=== PATIENT | male | born 1985 | race American Indian/Alaskan Native ===

== ENCOUNTER 2017-05-08 15:34 | Inpatient (IN) | payer OTHER ==
[2017-05-08] MEDS ORDERED: NACL 0.9% 1000 ML 1,000 ML ONE (15:58)
[2017-05-08] MEDS ORDERED: SUBLIMAZE ONE (15:58)
[2017-05-08] MEDS ORDERED: NACL 0.9% 1000 ML 1,000 ML IV ONE ×2 (16:00→17:06)
[2017-05-08] MEDS ORDERED: SUBLIMAZE IV ONE ×2 (16:00→16:34)
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
[2017-05-08 16:57] LABS: Basophils % (Auto) 0.6 % (0.0-1.8); Eosinophils % (Auto) 0.3 % (0.0-4.3); Hematocrit 45.2 % (35.5-45.6); Hemoglobin 14.8 gm/dl (11.8-15.2); Mean Corpuscular HGB Conc 33 % (32-34); Mean Corpuscular Hemoglobin 30 pg (28-32); Mean Corpuscular Volume 90 fl (84-94); Platelet Count 253 K/mm3 (140-440); Red Cell Distribution Width 13.4 % (13.2-15.2); White Blood Count 16.8 K/mm3 (4.5-11.0)
[2017-05-08] MEDS ORDERED: BENADRYL IV ONE (17:05)
[2017-05-08] MEDS ORDERED: DILAUDID IV ONE (17:05)
[2017-05-08] MEDS ORDERED: DILAUDID ONE ×2 (17:10→21:05)
[2017-05-08 17:17] LABS: Creatine Kinase MB 2.7 ng/mL (0.0-4.0)
[2017-05-08 17:19] LABS: Alanine Aminotransferase 17 units/L (7-56); Albumin 4.3 g/dL (3.9-5); Albumin/Globulin Ratio 1.5 %; Alkaline Phosphatase 75 units/L (35-129); Anion Gap 17 mmol/L; BUN/Creatinine Ratio 12.22; Blood Urea Nitrogen 11 mg/dL (9-20); Calcium 9.3 mg/dL (8.4-10.2); Carbon Dioxide 26 mmol/L (22-30); Chloride 107.3 mmol/L (98-107); Creatine Kinase 330 units/L (55-170); Glucose 91 mg/dL (75-100); INR 1.06 (0.87-1.13); Potassium 4.6 mmol/L (3.6-5.0); Sodium 146 mmol/L (137-145); Total Protein 7.1 g/dL (6.3-8.2)
[2017-05-08 17:20] LABS: Partial Thromboplastin Time 24.7 Sec. (24.2-36.6)
[2017-05-08 17:21] LABS: Bilirubin,Direct < 0.2 mg/dL (0-0.2); Bilirubin,Indirect 0.4 mg/dL
--- NOTE | 2017-05-08 17:25 | XRay Report ---
FINAL REPORT EXAM: XR CHEST 1V AP HISTORY: hypertension TECHNIQUE: upright single view chest PRIORS: None. FINDINGS: Cardiac and mediastinal contours are unremarkable. No focal pulmonary infiltrate is identified. No pleural fluid collection seen. Pulmonary vasculature is unremarkable. IMPRESSION: Negative single-view chest
[2017-05-08] MEDS ORDERED: ZOFRAN IV NR (18:00)
--- NOTE | 2017-05-08 18:02 | History and Physical Report ---
History of Present Illness Date of examination: 05/08/17 Date of admission: 05/08/17 History of present illness: History of Present Illness Patient states he is working on the rotor of car motor. The car was not properly supported and came down onto his left white. He states he rested in that position for 30 seconds before he was able to release his leg. He was transported to ED at [facility]. Further evaluation and given fentanyl and route by paramedics. He was given additional analgesia on arrival in the emergency department. On my evaluation the patient complained of left lower leg pain only. He denied any other injury. He denies any distal weakness numbness or paresthesias. He stated that he had no history of hypertension or diabetes or any chronic medical problems. He denied taking any routine medication. Past Medical History Previous Medical History?: No - Surgical History Past Surgical History?: No - Social History Smoking Status: Current Every Day Smoker Substance Use Type: None - Medications Home Medications: Home Medications Medication Instructions Recorded Confirmed Last Taken Type No Known Home Medications [No 05/08/17 05/08/17 Unknown History Reported Home Medications] Review of Systems Stated complaint: FRACTURE TO LOWER LEFT LEG Other details as noted in HPI Constitutional: denies: chills, fever Eyes: denies: eye pain, eye discharge, vision change ENT: denies: ear pain, throat pain Respiratory: denies: cough, shortness of breath, wheezing Cardiovascular: denies: chest pain, palpitations Endocrine: no symptoms reported Gastrointestinal: denies: abdominal pain, nausea, diarrhea Genitourinary: denies: urgency, dysuria Musculoskeletal: as per HPI. denies: back pain, joint swelling, arthralgia Skin: denies: rash, lesions Neurological: denies: headache, weakness, paresthesias Psychiatric: denies: anxiety, depression Hematological/Lymphatic: denies: easy bleeding, easy bruising Medications and Allergies Allergies Allergy/AdvReac Type Severity Reaction Status Date / Time No Known Allergies Allergy Verified 05/08/17 15:49 Home Medications Medication Instructions Recorded Confirmed Last Taken Type No Known Home Medications [No 05/08/17 05/08/17 Unknown History Reported Home Medications] Active Meds: Active Medications Sodium Chloride (Nacl 0.9% 1000 Ml) 1,000 mls @ 125 mls/hr IV ONCE ONE Stop: 05/09/17 01:05 Last Admin: 05/08/17 17:39 Dose: 125 mls/hr Ondansetron HCl (Zofran) 4 mg IV PREOP NR Stop: 05/09/17 17:59 Exam - Constitutional Vitals: Temp Pulse Resp BP Pulse Ox 98.3 F 77 16 130/87 99 05/08/17 15:44 05/08/17 15:44 05/08/17 16:03 05/08/17 15:44 05/08/17 16:03 Results - Labs CBC & Chem 7: 05/09/17 05:39 05/09/17 05:39 Labs: Laboratory Last Values WBC 16.8 K/mm3 (4.5-11.0) H 05/08/17 16:43 RBC 5.00 M/mm3 (3.65-5.03) 05/08/17 16:43 Hgb 14.8 gm/dl (11.8-15.2) 05/08/17 16:43 Hct 45.2 % (35.5-45.6) 05/08/17 16:43 MCV 90 fl (84-94) 05/08/17 16:43 MCH 30 pg (28-32) 05/08/17 16:43 MCHC 33 % (32-34) 05/08/17 16:43 RDW 13.4 % (13.2-15.2) 05/08/17 16:43 Plt Count 253 K/mm3 (140-440) 05/08/17 16:43 Lymph % (Auto) 6.1 % (13.4-35.0) L 05/08/17 16:43 [place] % (Auto) 4.6 % (0.0-7.3) 05/08/17 16:43 Eos % (Auto) 0.3 % (0.0-4.3) 05/08/17 16:43 Baso % (Auto) 0.6 % (0.0-1.8) 05/08/17 16:43 Lymph # 1.0 K/mm3 (1.2-5.4) L 05/08/17 16:43 [place]y # 0.8 K/mm3 (0.0-0.8) 05/08/17 16:43 Eos # 0.0 K/mm3 (0.0-0.4) 05/08/17 16:43 Baso # 0.1 K/mm3 (0.0-0.1) 05/08/17 16:43 Seg Neutrophils % 88.4 % (40.0-70.0) H 05/08/17 16:43 Seg Neutrophils # 14.9 K/mm3 (1.8-7.7) H 05/08/17 16:43 PT 13.7 Sec. (12.2-14.9) 05/08/17 16:43 INR 1.06 (0.87-1.13) 05/08/17 16:43 APTT 24.7 Sec. (24.2-36.6) 05/08/17 16:43 Sodium 146 mmol/L (137-145) H 05/08/17 16:43 Potassium 4.6 mmol/L (3.6-5.0) 05/08/17 16:43 Chloride 107.3 mmol/L (98-107) H 05/08/17 16:43 Carbon Dioxide 26 mmol/L (22-30) 05/08/17 16:43 Anion Gap 17 mmol/L 05/08/17 16:43 BUN 11 mg/dL (9-20) 05/08/17 16:43 Creatinine 0.9 mg/dL (0.8-1.5) 05/08/17 16:43 Estimated GFR > 60 ml/min 05/08/17 16:43 BUN/Creatinine Ratio 12.22 % 05/08/17 16:43 Glucose 91 mg/dL (75-100) 05/08/17 16:43 Calcium 9.3 mg/dL (8.4-10.2) 05/08/17 16:43 Magnesium 1.80 mg/dL (1.7-2.3) 05/08/17 16:43 Total Bilirubin 0.60 mg/dL (0.1-1.2) 05/08/17 16:43 Direct Bilirubin < 0.2 mg/dL (0-0.2) 05/08/17 16:43 Indirect Bilirubin 0.4 mg/dL 05/08/17 16:43 AST 19 units/L (5-40) 05/08/17 16:43 ALT 17 units/L (7-56) 05/08/17 16:43 Alkaline Phosphatase 75 units/L (35-129) 05/08/17 16:43 Total Creatine Kinase 330 units/L (55-170) H 05/08/17 16:43 CK-MB (CK-2) 2.7 ng/mL (0.0-4.0) 05/08/17 16:43 CK-MB (CK-2) Rel Index 0.8 (0-4) 05/08/17 16:43 Total Protein 7.1 g/dL (6.3-8.2) 05/08/17 16:43 Albumin 4.3 g/dL (3.9-5) 05/08/17 16:43 Albumin/Globulin Ratio 1.5 % 05/08/17 16:43 Blood Type O POSITIVE 05/08/17 16:48 Antibody Screen Negative 05/08/17 16:48
[2017-05-08] MEDS ORDERED: TYLENOL PO PRN (18:03)
[2017-05-08] MEDS ORDERED: ZOFRAN IV PRN (18:03)
[2017-05-08] MEDS ORDERED: MILK OF MAGNESIA PO PRN (18:03)
[2017-05-08] MEDS ORDERED: DILAUDID IV PRN (18:03)
[2017-05-08] MEDS ORDERED: DULCOLAX PR PRN (18:03)
[2017-05-08 18:57] LABS: Bilirubin,Urine NEG (Negative); Blood,Urine MOD (Negative); Ketones,Urine NEG (Negative); Leukocyte Esterase,Urine SM (Negative); Mucus,Urine FEW /HPF; Nitrite,Urine NEG (Negative); Protein,Urine <15 mg/dL mg/dL (Negative); Urobilinogen,Urine < 2.0 mg/dL (<2.0)
--- NOTE | 2017-05-08 18:57 | Emergency Department Report ---
ED Extremity Problem HPI - General Chief complaint: Extremity Injury, Lower Stated complaint: FRACTURE TO LOWER LEFT LEG Time Seen by Provider: 05/08/17 16:12 Source: EMS Mode of arrival: Stretcher Limitations: No Limitations - History of Present Illness Initial comments: Patient states he is working on the rotor of car motor. He missed the car was not properly supported. The car came down onto his left white. He states he rested in that position for 30 seconds before he was able to release his leg. He was transported to this. Further evaluation and given fentanyl and route by paramedics. He was given additional analgesia on arrival in the emergency department. On my evaluation the patient complained of left lower leg pain only. He denied any other injury. He denies any distal weakness numbness or paresthesias. He stated that he had no history of hypertension or diabetes or any chronic medical problems. He denied taking any routine medication. MD Complaint: extremity pain -: Sudden Location: left, lower extremity History of Same: No Radiation: none Severity scale (0 -10): 10 Quality: aching Consistency: constant Improves with: nothing Worsens with: other (movement) Associated Symptoms: denies other symptoms - Related Data Home Medications Medication Instructions Recorded Confirmed Last Taken No Known Home Medications [No 05/08/17 05/08/17 Unknown Reported Home Medications] Allergies Allergy/AdvReac Type Severity Reaction Status Date / Time No Known Allergies Allergy Verified 05/08/17 15:49 ED Review of Systems ROS: Stated complaint: FRACTURE TO LOWER LEFT LEG Other details as noted in HPI Constitutional: denies: chills, fever Eyes: denies: eye pain, eye discharge, vision change ENT: denies: ear pain, throat pain Respiratory: denies: cough, shortness of breath, wheezing Cardiovascular: denies: chest pain, palpitations Endocrine: no symptoms reported Gastrointestinal: denies: abdominal pain, nausea, diarrhea Genitourinary: denies: urgency, dysuria Musculoskeletal: as per HPI. denies: back pain, joint swelling, arthralgia Skin: denies: rash, lesions Neurological: denies: headache, weakness, paresthesias Psychiatric: denies: anxiety, depression Hematological/Lymphatic: denies: easy bleeding, easy bruising ED Past Medical Hx - Past Medical History Previous Medical History?: No - Surgical History Past Surgical History?: No - Social History Smoking Status: Current Every Day Smoker Substance Use Type: None - Medications Home Medications: Home Medications Medication Instructions Recorded Confirmed Last Taken Type No Known Home Medications [No 05/08/17 05/08/17 Unknown History Reported Home Medications] ED Physical Exam - General Limitations: No Limitations General appearance: alert, in no apparent distress - Head Head exam: Present: atraumatic, normocephalic - Eye Eye exam: Present: normal appearance, PERRL, EOMI. Absent: scleral icterus - ENT ENT exam: Present: mucous membranes moist - Neck Neck exam: Present: normal inspection - Respiratory Respiratory exam: Present: normal lung sounds bilaterally. Absent: respiratory distress - Cardiovascular Cardiovascular Exam: Present: regular rate, normal rhythm. Absent: systolic murmur, diastolic murmur, rubs, gallop - GI/Abdominal GI/Abdominal exam: Present: soft, normal bowel sounds. Absent: distended, tenderness, guarding, rebound, rigid - Rectal Rectal exam: Present: deferred - Extremities Exam Extremities exam: Present: normal capillary refill, other (soft tissue swelling and mild overlying ecchymosis of the middle third of the pretibial and calf area. There is swelling. However there is no sign of increased compartment pressure or tenseness of the calf or lower extremity. The dorsalis pedis and posterior tibial pulses are both 2+. There is no distal deformity or decreased temperature sensation.) - Back Exam Back exam: Present: normal inspection - Neurological Exam Neurological exam: Present: alert, oriented X3, CN II-XII intact. Absent: motor sensory deficit - Psychiatric Psychiatric exam: Present: normal affect, normal mood - Skin Skin exam: Present: warm, dry, intact, normal color. Absent: rash ED Course Vital Signs 05/08/17 05/08/17 15:44 16:03 Temperature 98.3 F Pulse Rate 77 Respiratory 16 16 Rate Blood Pressure 130/87 O2 Sat by Pulse 99 99 Oximetry - Reevaluation(s) Reevaluation #1: The case was discussed with Dr. Delgado the orthopedist. He received the images via text. He stated that the patient may be a candidate for IM salvatore. I personally think that is likely. He is admitted to the hospitalist service. The leg will require close observation. He was placed in a long-leg splint and the leg elevated. Ice packs were applied by nursing. Further care per Dr. ShyannElvira. 05/08/17 18:55 ED Medical Decision Making - Lab Data Result diagrams: 05/08/17 16:43 05/08/17 16:43 Laboratory Results - last 24 hr 05/08/17 05/08/17 05/08/17 16:43 16:43 16:43 WBC 16.8 H RBC 5.00 Hgb 14.8 Hct 45.2 MCV 90 MCH 30 MCHC 33 RDW 13.4 Plt Count 253 Lymph % (Auto) 6.1 L [place] % (Auto) 4.6 Eos % (Auto) 0.3 Baso % (Auto) 0.6 Lymph # 1.0 L [place] # 0.8 Eos # 0.0 Baso # 0.1 Seg Neutrophils % 88.4 H Seg Neutrophils # 14.9 H PT 13.7 INR 1.06 APTT 24.7 Sodium 146 H Potassium 4.6 Chloride 107.3 H Carbon Dioxide 26 Anion Gap 17 BUN 11 Creatinine 0.9 Estimated GFR > 60 BUN/Creatinine Ratio 12.22 Glucose 91 Calcium 9.3 Magnesium 1.80 Total Bilirubin 0.60 Direct Bilirubin < 0.2 Indirect Bilirubin 0.4 AST 19 ALT 17 Alkaline Phosphatase 75 Total Creatine Kinase 330 H CK-MB (CK-2) 2.7 CK-MB (CK-2) Rel Index 0.8 Total Protein 7.1 Albumin 4.3 Albumin/Globulin Ratio 1.5 Urine Bilirubin Urine RBC (Auto) U Epithel Cells (Auto) Blood Type Antibody Screen 05/08/17 05/08/17 16:48 18:20 WBC RBC Hgb Hct MCV MCH MCHC RDW Plt Count Lymph % (Auto) [place] % (Auto) Eos % (Auto) Baso % (Auto) Lymph # [place] # Eos # Baso # Seg Neutrophils % Seg Neutrophils # PT INR APTT Sodium Potassium Chloride Carbon Dioxide Anion Gap BUN Creatinine Estimated GFR BUN/Creatinine Ratio Glucose Calcium Magnesium Total Bilirubin Direct Bilirubin Indirect Bilirubin AST ALT Alkaline Phosphatase Total Creatine Kinase CK-MB (CK-2) CK-MB (CK-2) Rel Index Total Protein Albumin Albumin/Globulin Ratio Urine Bilirubin Neg Urine RBC (Auto) 3.0 U Epithel Cells (Auto) 1.0 Blood Type O POSITIVE Antibody Screen Negative - Radiology Data Radiology results: report reviewed Critical care attestation.: If time is entered above; I have spent that time in minutes in the direct care of this critically ill patient, excluding procedure time. ED Disposition Clinical Impression: Fracture of tibia with fibula, left, closed Qualifiers: Encounter type: initial encounter Qualified Code(s): S82.202A - Unspecified fracture of shaft of left tibia, initial encounter for closed fracture; S82.402A - Unspecified fracture of shaft of left fibula, initial encounter for closed fracture Disposition: 09 OP ADMIT IP TO THIS HOSP Is pt being admited?: Yes Does the pt Need Aspirin: No Condition: Stable Time of Disposition: 19:10
[2017-05-08] MEDS: DILAUDID IV SCH (21:21)
[2017-05-08] MEDS: HEPARIN SUB-Q SCH (23:14)
--- NOTE | 2017-05-09 00:49 | Admit Criteria Form ---
Admission Criteria Documentation: MUSCULOSKELETAL DISEASE GRG Clinical Indications for Admission to Inpatient Care (Place 'X' for any and all applicable criteria): Hospital admission is needed for appropriate care of the patient because of 1 or more of the following: [X]I. Fracture, dislocation, or other musculoskeletal injury requiring inpatient care(medical) as indicated by 1 or more of the following(4)(5)(6)(7) [ ]a) Vertebral fracture requiring observation for instability or neurologic compromise (8) [ ]b) Compartment syndrome (proven or cannot be ruled out during observation level of care) (9) [ ]c) Limb-threatening injury [ ]d) Major injury requiring inpatient stabilization such as traction initiation or external fixation before internal fixation or closure of complex or open fracture [ ]e) Major injury requiring inpatient treatment after emergency or observation level care (as appropriate) [X]f) Severe pain requiring acute inpatient management [ ]g) Injury with suspicion of abuse or neglect (eg., child, dependent elderly) [ ]II. Newly diagnosed or suspected bone, joint, or orthopedic device infection (e.g., osteomyelitis, septic arthritis) needing 1 or more of the following(1)(2)(3) [ ]a) IV antibiotics that cannot be initiated in other than inpatient setting (e.g., patient too unstable or home infusion not available) [ ]b) Device removal or replacement [ ]c) Bone or soft tissue debridement [ ]d) Joint drainage (drain placement or repetitive aspirations) [ ]III. Severe rheumatologic disease (e.g., systemic lupus erythematosus, rheumatoid arthritis) with complications or comorbidities (Also use Optimal Recovery Care Criteria or General Recovery Criteria as appropriate on the basis of predominant condition), including 1 or more of the following( 10)(11)(12)(13) [ ]a) Severe infection (e.g., TOUCH [employer]ER infection, sepsis) (14) [ ]b) Respiratory complications, including 1 or more of the following : [ ]i) Pleural effusion with respiratory compromise [ ]ii) Pulmonary hypertension with congestive failure [ ]iii) Respiratory failure [ ]iv) Pulmonary hemorrhage (15) [ ]c) Hematologic disease, including 1 or more of the following: [ ]i) Coagulopathy with bleeding [ ]ii) Thrombosis with hypercoagulable state [ ]iii) Thrombotic thrombocytopenic purpura [ ]d) Cerebritis with seizures, psychosis, or other severe abnormalities [ ]e) Vertebral destruction with monitoring needed for cervical myelopathy& possible respiratory compromise [ ]f) Exacerbation that requires inpatient treatment (e.g., intravenous immunosuppression) (16) [ ]g) Acute renal failure [ ]h) Cerebritis with seizures, psychosis, Altered mental status, or other neurologic abnormalities [ ]i) Pericardial effusion with tamponade [ ]j) Vertebral destruction, with monitoring needed for cervical myelopathy and possible respiratory compromise [ ]IV. Severe vasculitis with complications or comorbidities (Also use Optimal Recovery Care Criteria General Recovery Criteria as appropriate on the basis of predominant condition), including 1 or more of the following(11)(12)(17)(18)(19)(20) [ ]a) Exacerbation that requires inpatient treatment (e.g., intravenous immunosuppression) (19)(21) [ ]b) Pulmonary hemorrhage (15) [ ]c) TOUCH [employer]ER vasculitis with seizures, psychosis, Altered mental status that is severe or persistent, or other severe abnormalities (22) [ ]d) Cerebral infarction [ ]e) Gastrointestinal ischemia [ ]f) Gangrene or threatened amputation [ ]g) Renal failure (16) [ ]h) Other significant complications of vasculitis ( eg., tissue or organ ischemia, organ dysfunction ) [ ]V. Severe myopathy as indicated by 1 or more of the following (28)(29) [ ]a) New onset of airway compromise or inability to swallow [ ]b) Respiratory deterioration with observation needed for impending respiratory failure [ ]c) Exacerbation that requires inpatient treatment (e.g., intravenous immunosuppression) [ ]. Severe crystal gout (arthropathy) indicated by 1 or more of the following (23)(24) [ ]a) Severe pain requiring acute inpatient management [ ]b) Exacerbation that requires inpatient treatment (e.g., intravenous treatment) [ ]VII.Rhabdomyolysis and 1 or more of the following (25)(26)(27) [ ]a) Acute renal failure [ ]b) Need for intravenous hydration after emergency or observation level care (as appropriate) [ ]c) Inability to maintain oral hydration [ ]d) Change in mental status [ ]e) Electrolyte abnormality that remains after emergency or observation level care (as appropriate) [ ]VIII Post amputation complication, as indicated by ANY ONE of the following [ ]a) Infection [ ]b) Dehiscence [ ]c) Myodesis failure [ ]IX. Severe pain requiring acute inpatient management due to musculoskeletal condition [ ]X. Musculoskeletal Disease and ALL of the following: [ ]a) Symptom or finding for which emergency and observation care have failed or are not considered appropriate (Use General Criteria: Observation Care as appropriate) [ ]b) Presence of ANY ONE of the following [ ]i) A General Admission Criteria [ ]ii) A Pediatric General Admission Criteria The original [facility] [employer] content created by [facility] [employer] has been revised. The portions of the content which have been revised are identified through the use of italic text or in bold, and [facility] has neither reviewed nor approved the modified material. All other unmodified content is copyright [facility] [employer]. Please see references footnoted in the original [facility] edition 2016 Admission Criteria Met: Yes
[2017-05-09] MEDS: DILAUDID IV SCH ×8 (01:24→22:32)
[2017-05-09] MEDS: D5NS 1,000 ML IV SCH ×2 (03:27→12:29)
[2017-05-09 06:00] LABS: Basophils % (Auto) 0.4 % (0.0-1.8); Eosinophils % (Auto) 1.1 % (0.0-4.3); Hematocrit 40.5 % (35.5-45.6); Hemoglobin 13.7 gm/dl (11.8-15.2); Mean Corpuscular HGB Conc 34 % (32-34); Mean Corpuscular Hemoglobin 30 pg (28-32); Mean Corpuscular Volume 90 fl (84-94); Platelet Count 210 K/mm3 (140-440); Red Blood Count 4.52 M/mm3 (3.65-5.03); Red Cell Distribution Width 13.3 % (13.2-15.2); White Blood Count 10.6 K/mm3 (4.5-11.0)
[2017-05-09 06:21] LABS: Alanine Aminotransferase 15 units/L (7-56); Albumin 3.5 g/dL (3.9-5); Albumin/Globulin Ratio 1.1 %; Alkaline Phosphatase 65 units/L (35-129); Anion Gap 19 mmol/L; BUN/Creatinine Ratio 11.25; Blood Urea Nitrogen 9 mg/dL (9-20); Calcium 8.4 mg/dL (8.4-10.2); Carbon Dioxide 22 mmol/L (22-30); Chloride 105.5 mmol/L (98-107); Glucose 99 mg/dL (75-100); Potassium 4.4 mmol/L (3.6-5.0); Sodium 142 mmol/L (137-145); Total Protein 6.7 g/dL (6.3-8.2)
[2017-05-09] MEDS: HEPARIN SUB-Q SCH ×2 (09:12→22:33)
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
[2017-05-09] MEDS: PERCOCET 5/325 PO PRN (16:36)
--- NOTE | 2017-05-09 17:32 | Progress Note ---
Assessment and Plan L tib/fib Fx --No Need for surgery per Ortho - need PT eval, cont pain Mx as needed ENRIQUE - sec to patients obesity -CPAP iff necessary Tobacco abuse -counseled for cessation DVT prophylaxis --Lovenox 40 mg sq qd Disposition: home with HH after PT eval Brief History: A 31-year-old male who complains of left leg pain and swelling after an automobile fell onto his leg yesterday while at work. Plain x-rays taken in the emergency room reveals a minimally to nondisplaced fracture of both tibia and fibula, he was admitted for possible surgery. Subjective Date of service: 05/09/17 Interval history: Pt seen and examined PT eval pending, pt refused to have PT due to pain Objective - Constitutional Vitals: Vital Signs - 12hr 05/09/17 05/09/17 05/09/17 07:15 08:02 08:32 Temperature 98.7 F Pulse Rate 98 H Respiratory 24 20 20 Rate Respiratory Rate [Left Leg] Blood Pressure 112/74 O2 Sat by Pulse Oximetry 05/09/17 05/09/17 05/09/17 12:06 12:10 12:26 Temperature Pulse Rate Respiratory 20 Rate Respiratory Rate [Left Leg] Blood Pressure O2 Sat by Pulse 93 98 Oximetry 05/09/17 05/09/17 05/09/17 12:33 12:56 16:00 Temperature 98.6 F Pulse Rate 106 H Respiratory 20 22 Rate Respiratory 20 Rate [Left Leg] Blood Pressure 128/76 O2 Sat by Pulse 99 Oximetry 05/09/17 05/09/17 16:03 16:36 Temperature Pulse Rate Respiratory 20 20 Rate Respiratory Rate [Left Leg] Blood Pressure O2 Sat by Pulse Oximetry General appearance: Present: no acute distress, well-nourished - EENT Eyes: PERRL, EOM intact ENT: hearing intact, clear oral mucosa Ears: bilateral: normal - Neck Neck: supple, normal ROM - Respiratory Respiratory effort: normal Respiratory: bilateral: CTA - Cardiovascular Rhythm: regular Heart Sounds: Present: S1 & S2. Absent: gallop, rub Extremities: pulses intact, No edema, normal color, abnormal (left LE with dressing) - Gastrointestinal General gastrointestinal: Present: soft, non-tender, non-distended, normal bowel sounds - Genitourinary Male genitourinary: normal - Integumentary Integumentary: clear, warm, dry - Neurologic Neurologic: moves all extremities - Psychiatric Psychiatric: memory intact, appropriate mood/affect, intact judgment & insight - Labs CBC & Chem 7: 05/09/17 05:39 05/09/17 05:39 Labs: Abnormal lab results 05/09/17 05/09/17 Range/Units 05:39 05:39 Seg Neutrophils % 73.1 H (40.0-70.0) % Albumin 3.5 L (3.9-5) g/dL - Imaging and cardiology Chest x-ray: report reviewed (normal chest xr) Other: report reviewed (left tibia-fibula mid to distal fracture)
[2017-05-10] MEDS: DILAUDID IV SCH ×5 (02:10→17:26)
[2017-05-10] MEDS: PERCOCET 5/325 PO PRN ×2 (09:46→17:37)
[2017-05-10] MEDS: HEPARIN SUB-Q SCH ×2 (10:02→22:19)
--- NOTE | 2017-05-10 13:37 | Progress Note ---
Assessment and Plan Assessment and plan: L tib/fib Fx - No Need for surgery per Ortho - PT evaluation, he said he couldn't walk around much - X-ray showed nondisplaced fracture of the tibia and fibula - Pain control ENRIQUE - sec to patients obesity - CPAP if necessary, patient is counseled about weight loss Tobacco abuse -counseled for cessation DVT prophylaxis --Lovenox Disposition: - Per Orthopedics he can be discharged home tomorrow. History Interval history: Patient was seen and evaluated this morning, he has been complaining of pain. Hospitalist Physical - Physical exam Narrative exam: Not in cardiopulmonary distress. The patient appeared well nourished and normally developed. Vital signs as documented. Head exam is unremarkable. No scleral icterus . Neck is without jugular venous distension, thyromegaly, or carotid bruits. Lungs are clear to auscultation. Cardiac exam reveals regular rate and Rhythm. First and second heart sounds normal. No murmurs, rubs or gallops. Abdominal exam reveals normal bowel sounds, no masses, no organomegaly and no aortic enlargement. Extremities cast on the left leg, no swelling or tenderness. TUGGER OPERATOR: Alert and oriented 3. No focal weakness. - Constitutional Vitals: Temp Pulse Resp BP Pulse Ox 98.7 F 94 H 20 132/89 93 05/10/17 08:00 05/10/17 08:00 05/10/17 10:46 05/10/17 08:00 05/10/17 08:00 General appearance: Present: no acute distress, well-nourished Results - Labs CBC & Chem 7: 05/09/17 05:39 05/09/17 05:39 Labs: Laboratory Last Values WBC 10.6 K/mm3 (4.5-11.0) 05/09/17 05:39 RBC 4.52 M/mm3 (3.65-5.03) 05/09/17 05:39 Hgb 13.7 gm/dl (11.8-15.2) 05/09/17 05:39 Hct 40.5 % (35.5-45.6) 05/09/17 05:39 MCV 90 fl (84-94) 05/09/17 05:39 MCH 30 pg (28-32) 05/09/17 05:39 MCHC 34 % (32-34) 05/09/17 05:39 RDW 13.3 % (13.2-15.2) 05/09/17 05:39 Plt Count 210 K/mm3 (140-440) 05/09/17 05:39 Lymph % (Auto) 18.4 % (13.4-35.0) 05/09/17 05:39 [place] % (Auto) 7.0 % (0.0-7.3) 05/09/17 05:39 Eos % (Auto) 1.1 % (0.0-4.3) 05/09/17 05:39 Baso % (Auto) 0.4 % (0.0-1.8) 05/09/17 05:39 Lymph # 1.9 K/mm3 (1.2-5.4) 05/09/17 05:39 [place] # 0.7 K/mm3 (0.0-0.8) 05/09/17 05:39 Eos # 0.1 K/mm3 (0.0-0.4) 05/09/17 05:39 Baso # 0.0 K/mm3 (0.0-0.1) 05/09/17 05:39 Seg Neutrophils % 73.1 % (40.0-70.0) H 05/09/17 05:39 Seg Neutrophils # 7.7 K/mm3 (1.8-7.7) 05/09/17 05:39 PT 13.7 Sec. (12.2-14.9) 05/08/17 16:43 INR 1.06 (0.87-1.13) 05/08/17 16:43 APTT 24.7 Sec. (24.2-36.6) 05/08/17 16:43 Sodium 142 mmol/L (137-145) 05/09/17 05:39 Potassium 4.4 mmol/L (3.6-5.0) 05/09/17 05:39 Chloride 105.5 mmol/L (98-107) 05/09/17 05:39 Carbon Dioxide 22 mmol/L (22-30) 05/09/17 05:39 Anion Gap 19 mmol/L 05/09/17 05:39 BUN 9 mg/dL (9-20) 05/09/17 05:39 Creatinine 0.8 mg/dL (0.8-1.5) 05/09/17 05:39 Estimated GFR > 60 ml/min 05/09/17 05:39 BUN/Creatinine Ratio 11.25 % 05/09/17 05:39 Glucose 99 mg/dL (75-100) 05/09/17 05:39 Calcium 8.4 mg/dL (8.4-10.2) 05/09/17 05:39 Magnesium 1.80 mg/dL (1.7-2.3) 05/08/17 16:43 Total Bilirubin 0.80 mg/dL (0.1-1.2) 05/09/17 05:39 Direct Bilirubin < 0.2 mg/dL (0-0.2) 05/08/17 16:43 Indirect Bilirubin 0.4 mg/dL 05/08/17 16:43 AST 23 units/L (5-40) 05/09/17 05:39 ALT 15 units/L (7-56) 05/09/17 05:39 Alkaline Phosphatase 65 units/L (35-129) 05/09/17 05:39 Total Creatine Kinase 330 units/L (55-170) H 05/08/17 16:43 CK-MB (CK-2) 2.7 ng/mL (0.0-4.0) 05/08/17 16:43 CK-MB (CK-2) Rel Index 0.8 (0-4) 05/08/17 16:43 Total Protein 6.7 g/dL (6.3-8.2) 05/09/17 05:39 Albumin 3.5 g/dL (3.9-5) L 05/09/17 05:39 Albumin/Globulin Ratio 1.1 % 05/09/17 05:39 Urine Color Yellow (Yellow) 05/08/17 18:20 Urine Turbidity Clear (Clear) 05/08/17 18:20 Urine pH 5.0 (5.0-7.0) 05/08/17 18:20 Ur Specific [place] 1.014 (1.003-1.030) 05/08/17 18:20 Urine Protein <15 mg/dl mg/dL (Negative) 05/08/17 18:20 Urine Glucose (UA) Neg mg/dL (Negative) 05/08/17 18:20 Urine Ketones Neg mg/dL (Negative) 05/08/17 18:20 Urine Blood Mod (Negative) 05/08/17 18:20 Urine Nitrite Neg (Negative) 05/08/17 18:20 Urine Bilirubin Neg (Negative) 05/08/17 18:20 Urine Urobilinogen < 2.0 mg/dL (<2.0) 05/08/17 18:20 Ur Leukocyte Esterase Sm (Negative) 05/08/17 18:20 Urine WBC (Auto) 5.0 /HPF (0.0-6.0) 05/08/17 18:20 Urine RBC (Auto) 3.0 /HPF (0.0-6.0) 05/08/17 18:20 U Epithel Cells (Auto) 1.0 /HPF (0-13.0) 05/08/17 18:20 Urine Mucus Few /HPF 05/08/17 18:20 Blood Type O POSITIVE 05/08/17 16:48 Antibody Screen Negative 05/08/17 16:48
[2017-05-10] MEDS: DILAUDID IV PRN ×2 (14:00→21:30)
[2017-05-11] MEDS: DILAUDID IV PRN ×4 (01:30→15:13)
[2017-05-11] MEDS: PERCOCET 5/325 PO PRN ×2 (10:00→16:24)
[2017-05-11] MEDS: HEPARIN SUB-Q SCH (10:29)
--- NOTE | 2017-05-11 13:28 | Discharge Summary ---
Providers - Providers Date of Admission: 05/08/17 18:03 Date of discharge: 05/11/17 Attending physician: ELSY MCGOWAN MD 05/08/17 18:05 Consult to Physician [CONS] Routine Consulting Provider: KIP DELGADO Reason For Exam: Tib Fib Fx Place consult to:: ORTHO Notified:: Y Was contact made?: Yes If yes, spoke with:: DR DELGADO Time called:: 17:30 05/08/17 19:35 Consult to Physician [CONS] Routine Consulting Provider: KIP DELGADO Reason For Exam: tib/fib fx Place consult to:: office Notified:: yes Was contact made?: Yes 05/09/17 10:42 Physical Therapy Evaluation and Treat [CONS] Urgent Comment: Reason For Exam: eval & tx - fx right tib-fib Weight bearing status?: Nonwt bearing Assistive devices?: Yes If so list: Walker Primary care physician: MARKETING EXECUTIVE Hospitalization Reason for admission: left tibia and fibular fracture Condition: Stable Pertinent studies: X-ray of the left leg showed transverse fracture of the left Tibia and fibula Hospital course: Admission H/P Patient states he is working on the rotor of car motor. The car was not properly supported and came down onto his left white. He states he rested in that position for 30 seconds before he was able to release his leg. He was transported to ED at [facility]. Further evaluation and given fentanyl and route by paramedics. He was given additional analgesia on arrival in the emergency department. The patient complained of left lower leg pain only. He denied any other injury. He denies any distal weakness numbness or paresthesias. He stated that he had no history of hypertension or diabetes or any chronic medical problems. He denied taking any routine medication.\ Patient was admitted to the surgical floor and Dr. Delgado, Orthopedic surgeon was consulted and he put cast and recommended conservative management. PT evaluated him and patient discharged with home health. Patient is scheduled to see Dr. Delgado in the week. Patient was given pain medication as a time of discharge. Patient was hemodynamically stable as a time of discharge. Disposition: [id number] HOME UNDER HOME HLTH Time spent for discharge: 31 minutes - Discharge Diagnoses (1) Fracture of tibia with fibula, left, closed Status: Acute Qualifiers: Encounter type: initial encounter Fracture healing: F Qualified Code(s): S82.202A - Unspecified fracture of shaft of left tibia, initial encounter for closed fracture; S82.402A - Unspecified fracture of shaft of left fibula, initial encounter for closed fracture Core Measure Documentation - Palliative Care Palliative Care/ Comfort Measures: Not Applicable - Core Measures Any of the following diagnoses?: none Exam - Physical Exam Narrative exam: Not in cardiopulmonary distress. The patient is obese. Vital signs as documented. Head exam is unremarkable. No scleral icterus . Neck is without jugular venous distension, thyromegaly, or carotid bruits. Lungs are clear to auscultation. Cardiac exam reveals regular rate and Rhythm. First and second heart sounds normal. No murmurs, rubs or gallops. Abdominal exam reveals normal bowel sounds, no masses, no organomegaly and no aortic enlargement. Extremities cast on the left leg, muld selling and tenderness. INSULATOR APPRENTICE: Alert and oriented 3. No focal weakness. - Constitutional Vitals: Temp Pulse Resp BP Pulse Ox 97.3 F L 92 H 18 129/79 94 05/11/17 08:00 05/11/17 08:00 05/11/17 11:40 05/11/17 08:00 05/11/17 08:00 Plan Activity: advance as tolerated Weight Bearing Status: Weight Bear as Tolerated Special Instructions: physical therapy Follow up with: LUKE HOLT MD [Primary Care Provider] - 3-5 Days KIP DELAGDO MD [Staff Physician] - 14 Days Prescriptions: Oxycodone HCl/Acetaminophen [Percocet 10/325 mg] 1 each PO Q6HR PRN #20 tablet PRN Reason: Pain
[2017-05-11 15:48] VITALS: BP 130/80
== END 2017-05-11 16:30 | disposition home health service (06) | DRG 563 ==
LOC: ED 15:34 → 3A 18:03 → 2B-SURG 19:51
PROVIDERS: ADMIT Internal Medicine; ATTEND Internal Medicine
DX: S82.302A Unspecified fracture of lower end of left tibia, initial encounter for closed fracture (principal); Z68.41 Body mass index [BMI] 40.0-44.9, adult; F17.200 Nicotine dependence, unspecified, uncomplicated; I10 Essential (primary) hypertension; G47.33 Obstructive sleep apnea (adult) (pediatric); S82.832A Other fracture of upper and lower end of left fibula, initial encounter for closed fracture; V87.8XXA Person injured in other specified noncollision transport accidents involving motor vehicle (traffic), initial encounter; Y93.I9 Activity, other involving external motion; Y92.89 Other specified places as the place of occurrence of the external cause; Y99.8 Other external cause status; E66.9 Obesity, unspecified
CPT/HCPCS: 36415; 71010; 80048; 80053; 80074; 81001; 82550; 82553; 83735; 85025; 85610; 85730; 86850; 86900; 86901; 93005; 93010; 94760; 96361; 96374; 96375; 96376; J1170; J1200; J1644; J3010; J7030; J7042